=== PATIENT | female | born 1980 | race Caucasian/White ===

== ENCOUNTER 2017-03-17 18:02 | Inpatient (IN) ==
[2017-03-17 19:07] LABS: Basophils % 0.5 %; Eosinophils # 0.2 K/mcL (0.0-0.6); Eosinophils % 2.6 %; Hematocrit 36.3 % (35.3-44.9); Hemoglobin 11.7 g/dL (11.5-15.4); Immature Granulocytes % 0.3 % (0-4); Lymphocytes # 2.5 K/mcL (0.6-4.6); Mean Corpuscular HGB Conc 32.2 g/dL (31.6-35.5); Mean Corpuscular Hemoglobin 27.7 pg (28.0-33.3); Mean Corpuscular Volume 85.8 fL (83.0-100.0); Mean Platelet Volume 9.7 fL (9.4-12.4); Monocytes # 0.5 K/mcL (0.0-1.3); Monocytes % 7.8 %; Platelet Count 244 K/mcL (140-400); Red Blood Count 4.23 M/mcL (3.82-4.97); Red Cell Distribution Width 12.6 % (11.5-14.5); Segmented Neutrophils % 48.8 %
[2017-03-17 19:22] LABS: Acetaminophen < 1.0 mcg/mL (10-30); BUN/Creatinine Ratio 10 (6-26); Blood Urea Nitrogen 8 mg/dL (7-20); Calcium 8.9 mg/dL (8.6-10.8); Carbon Dioxide 27 mEq/L (19-29); Chloride 106 mEq/L (98-109); Ethanol < 10 mg/dL (0-10); Glucose 104 mg/dL (70-99); Osmolality,Calculated 289 (280-300); Potassium 3.2 mEq/L (3.5-4.5); Salicylate < 5.0 mg/dL (15-30); Sodium 140 mEq/L (136-145); eGFR For African Americans > 60 (> 60); eGFR For Non-African Americans > 60 (> 60)
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
[2017-03-17 19:47] LABS: Bilirubin,Urine Negative (Negative); Blood,Urine Negative (Negative); Clarity,Urine Cloudy (Clear); Color,Urine Yellow (Yellow); Glucose,Urine (UA) Normal (Normal); Ketones,Urine Negative (Negative); Leukocyte Esterase,Urine Large (Negative); Nitrite,Urine Negative (Negative); PH,Urine 6.5 pH Units (5.0-8.0); Protein,Urine Negative (Neg-Trace); Specific Gravity,Urine 1.014 (1.010-1.025); Urobilinogen,Urine Normal (Normal)
[2017-03-17 19:49] LABS: Bacteria,Urine Many per hpf (None-Few); Hyaline Casts,Urine Few per lpf (None-Few); Squamous Epithelial Cell,Urine Many per lpf (None-Few); WBC,Urine 50-100 per hpf (0-3)
[2017-03-17 19:53] LABS: Amphetamine Screen,Urine Positive ng/mL (Cutoff=1000); Barbiturate Screen,Urine Negative ng/mL (Cutoff=200); Benzodiazepines Screen,Urine Positive ng/mL (Cutoff=200); Cannabinoid Screen,Urine Positive ng/mL (Cutoff = 50); Cocaine Screen,Urine Negative ng/mL (Cutoff= 300); Opiate Screen,Urine Negative ng/mL (Cutoff=300); Phencyclidine Screen,Urine Negative ng/mL (Cutoff=25)
[2017-03-17 20:01] LABS: RBC,Urine 0-3 per hpf (0-3)
[2017-03-17 20:02] LABS: Mucus,Urine Few (Few)
[2017-03-17] MEDS ORDERED: *HR* LORazepam 2 MG/ML VIAL IM ONE (20:27)
[2017-03-17] MEDS ORDERED: hydrOXYzine pamoate 25 MG CAPSULE PO PRN (21:43)
[2017-03-17] MEDS ORDERED: *HR* LORazepam 1 MG TABLET PO PRN (21:43)
[2017-03-17] MEDS ORDERED: MOM Conc 10 ML UD.LIQ PO PRN (21:43)
[2017-03-17] MEDS ORDERED: Mag Hydrox/Al Hydrox/Simeth 30 ML UDC PO PRN (21:43)
[2017-03-17] MEDS ORDERED: *HR* LORazepam 2 MG/ML VIAL IM PRN (21:43)
[2017-03-17] MEDS ORDERED: traZODone 50 MG TABLET PO PRN (21:43)
[2017-03-17] MEDS ORDERED: Haloperidol Lactate 5 MG/ML VIAL IM PRN (21:43)
[2017-03-17] MEDS: clonazePAM 1 MG TABLET PO SCH (22:28)
[2017-03-17] MEDS: tiZANidine 4 MG TABLET PO PRN (22:28)
[2017-03-17] MEDS: Gabapentin 400 MG CAPSULE PO SCH (22:29)
[2017-03-17] MEDS: Ibuprofen 800 MG TABLET PO PRN (23:16)
[2017-03-18] MEDS: Nicotine 21 MG PATCH.TD24 TD SCH (09:59)
[2017-03-18] MEDS: Nitrofurantoin (BID) 100 MG CAPSULE PO SCH ×2 (09:59→17:16)
[2017-03-18] MEDS: Gabapentin 400 MG CAPSULE PO SCH ×4 (09:59→21:36)
[2017-03-18] MEDS: clonazePAM 1 MG TABLET PO SCH ×2 (09:59→18:46)
--- NOTE | 2017-03-18 15:00 | Psychiatry History & Physical ---
Date of Encounter: 03/18/17 Time of Encounter: 12:45 History of Present Illness Patient Stated Chief Complaint: "I feel bad." Medicare Admission Attestation: For traditional Medicare patients the provided hospital inpatient services are reasonable and necessary and in the case of services not specified as inpatient -only under 42 CFR 419.22 (n), that they are appropriately provided as inpatient services in accordance 42 CFR 412.3. For Critical Access Hospital the patient may reasonably be expected to be discharged or transferred to a hospital within 96 hours after admission to the Critical Access Hospital. Admitted From: Direct Admit Plans for Post Hospital Care: Home History of Present Illness: Ms. Davis is a 37 year old female with a long-standing history of depression, anxiety, personality disorder as well as substance abuse who presented to the hospital said by her outpatient doctor with increasing depression, hopelessness , suicidal ideations. Patient reports that she has not been feeling well. She feels like everyone she knows is out to get her because "they will not help me. " She states that she has been using drugs and other psychoactive substances. Staff found what appear to be a joint and several different botanical supplements the patient had attempted to smuggle in her underwear. She was very irritable but these were taken away from her. Today, patient has been sleeping spending most of her time in her room or sitting on the floor curled in a ball. Patient is unable to tell this provider if she has any problems with auditory or visual hallucinations. Several times throughout the interview she falls asleep. It is unclear if patient was taking the medications she was prescribed appropriately oriented she had not been taking them and the reason for her sedation is because patient was not taking these regularly. No seizure activity noted and patient denies symptoms of such. Past Med Surg Social Fam HX - Past Medical History Medical history: migraine, seizures - Past Psychiatric History Psychiatric history: Reports: prior suicide attempt, previous psychiatric hospitalization, other (Bulimia) Past psychiatric history details: Patient has multiple psychiatric admissions. Most recent admission here previously was in 2014. Family psychiatric history: Yes Family Psychiatric History Details: Mom and brother have bipolar disorder. Family History of Suicide: Attempted (Mom and brother) - Social History Smoking Status: Never smoker Smokeless Tobacco Status: Yes Alcohol use: none Drug use: marijuana, methamphetamine Occupational status: unemployed Current living situation: Homeless Medications & Allergies Gabapentin [Neurontin] 800 mg PO TID 11/26/15 [History] Tizanidine HCl [Zanaflex] 4 mg PO Q8H PRN 11/26/15 [History] clonazePAM [Klonopin] 1 mg PO TID 11/26/15 [History] SUMAtriptan Succinate [Imitrex] 100 mg PO DAILY PRN 03/02/16 [History] Citalopram Hydrobromide [Celexa] 80 mg PO QAM 03/17/17 [History] Ibuprofen [Ibuprofen] 800 mg PO TID PRN 03/17/17 [History] 3 Allergy/AdvReac Type Severity Reaction Status Date / Time naproxen AdvReac Vomiting Verified 10/04/16 05:35 tramadol AdvReac Seizure Verified 10/04/16 05:35 Review of Systems ROS limited: due to patient condition Psychiatric: Reports: depression, anxiety, abnormal sleep pattern, suicidal ideation, confusion Mental Status Exam Patient orientation: Yes Person, No Time, No Place, Yes Circumstance Level of alertness: Sedated Patient appearance: Unkempt, Disheveled Behavior: uncooperative, withdrawn Psychomotor activity: Slowed Eye contact: Avoids Eye Contact Mood description: Depressed Affect description: dysphoric, other (Sleeping) Speech pattern: Slowed, Slurred Speech volume: Soft/Quiet Thought process: Lynch Thought content: Yes Suicidal ideation Perceptual disturbances: No Reacting to internal stimuli Attention span: Unable to Sustain Attention Memory description: Immediate Impaired Patient reliability: Not Reliable Historian Intelligence estimate: Average Judgment: Poor Insight: None Exam - HEENT Head exam IM: Present: atraumatic Eye exam IM: Present: EOMI - Neurological Neurological exam IM: Present: CN II-XII intact - Extremities Extremities exam IM: Present: full ROM - Skin Skin exam IM: Present: dry, warm Results - Vital Signs Vital signs: Temp Pulse Resp BP Pulse Ox 97.5 F L 87 18 94/67 98 03/18/17 09:00 03/18/17 09:00 03/18/17 09:00 03/18/17 09:00 03/17/17 18:16 - Labs Labs: Laboratory Last Values WBC 6.1 K/mcL (4.3-11.1) 03/17/17 19:01 RBC 4.23 M/mcL (3.82-4.97) 03/17/17 19:01 Hgb 11.7 g/dL (11.5-15.4) 03/17/17 19:01 Hct 36.3 % (35.3-44.9) 03/17/17 19: MCV 85.8 fL (83.0-100.0) 03/17/17 19:01 MCH 27.7 pg (28.0-33.3) L 03/17/17 19: MCHC 32.2 g/dL (31.6-35.5) 03/17/17 19:01 RDW 12.6 % (11.5-14.5) 03/17/17 19:01 Plt Count 244 K/mcL (140-400) 03/17/17 19:01 MPV 9.7 fL (9.4-12.4) 03/17/17 19: Immature Gran % 0.3 % (0-4) 03/17/17 19: Seg Neutrophils % 48.8 % 03/17/17 19:01 Lymphocytes % 40.0 % 03/17/17 19:01 Monocytes % 7.8 % 03/17/17 19:01 Eosinophils % 2.6 % 03/17/17 19: Basophils % 0.5 % 03/17/17 19:01 Neutrophils # 3.0 K/mcL (1.6-8.9) 03/17/17 19:01 Lymphocytes # 2.5 K/mcL (0.6-4.6) 03/17/17 19:01 Monocytes # 0.5 K/mcL (0.0-1.3) 03/17/17 19:01 Eosinophils # 0.2 K/mcL (0.0-0.6) 03/17/17 19:01 Basophils # 0.0 K/mcL (0.0-0.2) 03/17/17 19:01 Sodium 140 mEq/L (136-145) 03/17/17 19:01 Potassium 3.2 mEq/L (3.5-4.5) L 03/17/17 19:01 Chloride 106 mEq/L (98-109) 03/17/17 19:01 Carbon Dioxide 27 mEq/L (19-29) 03/17/17 19:01 BUN 8 mg/dL (7-20) 03/17/17 19:01 Creatinine 0.81 mg/dL (0.57-1.11) 03/17/17 19:01 Est GFR ( Amer) > 60 (> 60) 03/17/17 19:01 Est GFR (Non-Af Amer) > 60 (> 60) 03/17/17 19:01 BUN/Creatinine Ratio 10 (6-26) 03/17/17 19:01 Glucose 104 mg/dL (70-99) H 03/17/17 19:01 Calculated Osmolality 289 (280-300) 03/17/17 19:01 Calcium 8.9 mg/dL (8.6-10.8) 03/17/17 19:01 Urine Color Yellow (Yellow) 03/17/17 18:42 Urine Clarity Cloudy (Clear) A 03/17/17 18:42 Urine pH 6.5 pH Units (5.0-8.0) 03/17/17 18:42 Ur Specific [place] 1.014 (1.010-1.025) 03/17/17 18:42 Urine Protein Negative mg/dL (Neg-Trace) 03/17/17 18:42 Urine Glucose (UA) Normal mg/dL (Normal) 03/17/17 18:42 Urine Ketones Negative mg/dL (Negative) 03/17/17 18:42 Urine Blood Negative (Negative) 03/17/17 18:42 Urine Nitrite Negative (Negative) 03/17/17 18:42 Urine Bilirubin Negative (Negative) 03/17/17 18:42 Urine Urobilinogen Normal mg/dL (Normal) 03/17/17 18:42 Ur Leukocyte Esterase Large (Negative) H 03/17/17 18:42 Urine Microscopic RBC 0-3 per hpf (0-3) 03/17/17 18:42 Urine Microscopic WBC 50-100 per hpf (0-3) H 03/17/17 18:42 Ur Squamous Epith Cells Many per lpf (None-Few) H 03/17/17 18:42 Urine Bacteria Many per hpf (None-Few) H 03/17/17 18:42 Hyaline Casts Few per lpf (None-Few) 03/17/17 18:42 Urine Mucus Few (Few) 03/17/17 18:42 Salicylates < 5.0 mg/dL (15-30) L 03/17/17 19:01 Urine Opiates Screen Negative ng/mL (Xwgxvv=393) 03/17/17 19:37 Acetaminophen < 1.0 mcg/mL (10-30) L 03/17/17 19:01 Ur Barbiturates Screen Negative ng/mL (Wfvnlq=441) 03/17/17 19:37 Ur Phencyclidine Scrn Negative ng/mL (Cutoff=25) 03/17/17 19:37 Ur Amphetamines Screen Positive ng/mL (Ogdnmi=2949) H 03/17/17 19:37 U Benzodiazepines Scrn Positive ng/mL (Amnamp=279) H 03/17/17 19:37 Urine Cocaine Screen Negative ng/mL (Cutoff= 300) 03/17/17 19:37 U Marijuana (THC) Screen Positive ng/mL (Cutoff = 50) H 03/17/17 19:37 Ethyl Alcohol < 10 mg/dL (0-10) 03/17/17 19:01 Assessment and Plan (1) Major depressive disorder, recurrent severe without psychotic features Current visit: Yes Status: Acute Plan: Admit inpatient for safety and stabilization, Close observation, Suicide Precautions per unit protocol, Encourage participation in unit milieu, Group Therapy, Monitor sleep, Monitor appetite Additional Plan: We will restart home medication of gabapentin. Hold on adding medications today but we will monitor symptoms and consider decreasing the patient's sedation level. Encouraged patient to interact in therapeutic milieu. Patient agreeable to treatment: No Estimated Length of Stay (Days): 3 (2) Substance abuse Current visit: Yes Status: Acute Plan: Admit inpatient for safety and stabilization, Close observation, Suicide Precautions per unit protocol, Encourage participation in unit milieu, Group Therapy, Monitor sleep, Monitor appetite Additional Plan: Educated patient on the need to discontinue illicit drug use. Discussed with patient the negative effects of some botanical supplements. (3) Anxiety Current visit: Yes Status: Acute Plan: Admit inpatient for safety and stabilization, Close observation, Suicide Precautions per unit protocol, Encourage participation in unit milieu, Group Therapy, Monitor sleep, Monitor appetite Additional Plan: Taper Klonopin as patient has a history of substance abuse. Risks, benefits, side effects, alternatives discussed w/pt: Yes Patient agreeable to treatment: Yes (4) Personality disorder Current visit: Yes Status: Acute Plan: Admit inpatient for safety and stabilization Additional Plan: Encourage positive coping strategies.. Actually we had a Risks, benefits, side effects, alternatives discussed w/pt: Yes Patient agreeable to treatment: Yes
[2017-03-18] MEDS: tiZANidine 4 MG TABLET PO PRN (16:39)
[2017-03-18] MEDS: Ibuprofen 800 MG TABLET PO PRN (16:39)
[2017-03-18] MEDS: clonazePAM 0.5 MG TABLET PO PRN (19:44)
[2017-03-18] MEDS ORDERED: tiZANidine 4 MG TABLET PO PRN (21:01)
[2017-03-19] MEDS: Gabapentin 400 MG CAPSULE PO SCH (09:03)
[2017-03-19] MEDS: Nicotine 21 MG PATCH.TD24 TD SCH (09:03)
[2017-03-19] MEDS: Nitrofurantoin (BID) 100 MG CAPSULE PO SCH (09:03)
[2017-03-19] MEDS: Ibuprofen 800 MG TABLET PO PRN (09:03)
[2017-03-19] MEDS: clonazePAM 0.5 MG TABLET PO PRN (09:06)
[2017-03-19 09:34] VITALS: BP 105/59
--- NOTE | 2017-03-19 10:03 | Discharge Summary ---
Date of Encounter: 03/19/17 Time of Encounter: 09:30 Diagnosis - Discharge Diagnosis (1) Major depressive disorder, recurrent severe without psychotic features Priority: Primary Status: Acute (2) Substance abuse Priority: Secondary Status: Chronic (3) Anxiety Status: Chronic (4) Personality disorder Status: Chronic Medications - Discharge Medications Prescriptions: Citalopram [CeleXA] 40 mg PO QAM #60 tab Nitrofurantoin (BID) [Macrobid] 100 mg PO BIDWM #10 traZODone [TraZODone] 50 mg PO HS PRN #30 tab PRN Reason: Insomnia Tizanidine HCl [Zanaflex] 4 mg PO Q8H PRN 11/26/15 [History] SUMAtriptan Succinate [Imitrex] 100 mg PO DAILY PRN 03/02/16 [History] Ibuprofen 800 mg PO TID PRN 03/17/17 [History] Citalopram [CeleXA] 40 mg PO QAM #60 tab 03/19/17 [Rx] Gabapentin [Neurontin] 400 mg PO TID 03/19/17 [Rx] Nitrofurantoin (BID) [Macrobid] 100 mg PO BIDWM #10 03/19/17 [Rx] clonazePAM [Klonopin] 0.5 mg PO TID PRN tab 03/19/17 [Rx] traZODone [TraZODone] 50 mg PO HS PRN #30 tab 03/19/17 [Rx] 3 Allergy/AdvReac Type Severity Reaction Status Date / Time naproxen AdvReac Vomiting Verified 10/04/16 05:35 tramadol AdvReac Seizure Verified 10/04/16 05:35 Provider Date of admission: 03/17/17 21:23 Primary care physician: PCP NONE Discharging clinician: Tara Muhammad Assessment and Plan - Patient/Caregiver Discharge Instructions Activity: resume usual activities as tolerated Diet: regular diet - Follow up Plan Follow up with: Mario Hahn [Other] - 03/24/17 12:30 pm (The above appointment is with Tila Hahn for mental health an substance abuse counseling services.) [facility] [Outside] - 03/25/17 4:00 pm (The above appointment is with Rose [facility] for outpatient psychiatric assessment and medication management services.) Functional capacity at discharge: independent ambulation Overall status at discharge: Stable Disposition: Home, Self-Care Hospital Course Hospital course: Ms. Davis is a 37 year old female with a history of depression, anxiety, substance abuse issues who presented to the hospital with depression and SI. She was admitted to [facility] for psychiatric stabilization. Patient was incorporated into the milieu and offer group and individual as well as recreational therapy. She was also offered psychoeducational materials is ordered therapy. She was placed on suicide precautions and close observation per unit protocol. Patient was very irritable with staff because she did not get her herbal supplements that she tried to sneak in her underwear. She was somewhat argumentative with staff at times but did take her medications. She did exhibit some drug-seeking behavior especially related to her Klonopin and gabapentin. Throughout the course of hospital stay the patient did become slightly more cooperative. She verbalized that she did not want to hurt herself. She slept well during her hospitalization. She denied suicidal or homicidal ideation, intent, or plan. She denied auditory or visual hallucinations. At the time of discharge she was agreeable to continuing her medications as prescribed and following up with her outpatient provider. I did attempt to get the patient on the importance of discontinuing substance use including herbal supplements that may be impairing her judgment. Patient verbalizes understanding. She is discharged in stable condition. Time spent discussing smoking cessation with patient: 3 to 10 minutes Does patient wish to continue nicotine replacement upon disc: No - Time Spent with Patient Total time spent providing and/or coordinating discharge services: Less than 30 minutes Quality - Multiple Antipsychotics Patient discharged on 2 or more antipsychotic medications: No Procedures - Procedures Procedures: Medication Management, Crisis Stabilization, Supportive Therapy, Group Therapy, Psychoeducational Therapy Mental Status Exam - Mental Status Exam Patient orientation: Yes Person Level of alertness: Alert Patient appearance: Unkempt Behavior: guarded Psychomotor activity: Normal Eye contact: Minimal Contact Mood description: Euthymic/stable Affect description: congruent with mood Speech pattern: Normal rate, Normal rhythm, Normal tone Speech Volume: Normal Thought process: Logical, Linear, Goal Oriented Thought Content: No Suicidal ideation, No Homicidal ideation Perceptual Disturbances: No Auditory hallucinations, No Visual hallucinations Judgment: Limited Insight: Partial
== END 2017-03-19 11:10 | disposition home or self-care (01) | DRG 751 ==
LOC: EMEROO 18:02 → 1ANU 21:23
PROVIDERS: ADMIT Student in an Organized Health Care Education/Training Program; ATTEND Student in an Organized Health Care Education/Training Program